=== PATIENT | male | born 1970 | race Caucasian/White ===

== ENCOUNTER 2017-03-11 06:38 | Inpatient (IN) | payer OTHER, MEDICARE ==
[~2017-03-11] VITALS: Ht 170.2 cm; Wt 97.5 kg
[~2017-03-11 06:38] MED LIST: ALPRAZOLAM0.5 M3 PO; AMITRIPTYLINE H25 M2 PO; AMITRIPTYLINE H50 MG PO; ASPIRIN EC81 M1 PO; CITALOPRAM HBR40 MG PO; DIAZEPAM5 M1; DILAUDID 4 MG TA4 MG PO; DILAUDID4 M1 PO; ELAVIL 50 MG PO; EXALGO PO; EXALGO16 MG PO; EXALGO32 MG PO; GABAPENTIN250 MG/5 M PO; HYDROMORPHONE H PO; HYDROMORPHONE HY2 MG PO; HYDROMORPHONE HY4 MG PO; HYDROXYZINE HCL25 MG PO; LYRICA100 M1 PO; ONDANSETRON8 M1 SL; OXYCONTIN40 MG PO; PANTOPRAZOLE SO40 MG PO; PHENERGAN25 MG PR; TAMSULOSIN HYD0.4 MG PO; ZANAFLEX4 MG PO; ZOFRAN 8MG8 MG PO; ZOFRAN ODT4 MG SL; [UNRECOGNIZED DRUG - OTHER] INH
--- NOTE | 2017-03-11 07:31 | ED GI/GU/ABDOMINAL COMPLAINT ---
History of Present Illness General Chief Complaint: Abdominal Pain/Flank Pain Stated Complaint: LEFT KIDNEY PAIN Source: patient, old records Exam Limitations: no limitations Vital Signs & Intake/Output Vital Signs & Intake/Output Vital Signs Date Time Temp Pulse Resp B/P B/P Pulse O2 O2 Flow FiO2 Mean Ox Delivery Rate 03/11 1228 97.3 67 18 132/84 96 Room Air 03/11 1030 98.2 87 18 129/84 95 Room Air 03/11 0708 97.6 116 20 153/116 98 Room Air Allergies Coded Allergies: Iodinated Contrast- Oral and IV Dye (IODINATED CONTRAST MEDIA - IV DYE) (Severe, ANAPHYLAXIS 02/12/16) Iodine and Iodide Containing Produc (Severe, ANAPHYLAXIS 02/12/16) iodine (Severe, ANAPHYLAXIS 02/12/16) morphine (Intermediate, HIVES 02/12/16) Reconcile Medications Amitriptyline HCl 25 MG TABLET 1 TAB PO QPM PAIN (Reported) Amlodipine Besylate 2.5 MG TABLET 1 TAB PO DAILY HEART (Reported) Aspirin (Ecotrin*) 81 MG TABLET.DR 1 TAB PO DAILY AFIB (Reported) Baclofen 20 MG TABLET 1 TAB PO QPM SLEEP (Reported) Citalopram Hydrobromide (Citalopram HBr) 40 MG TABLET 1 TAB PO DAILY MENTAL HEALTH (Reported) Hydromorphone HCl (Exalgo) 8 MG TAB.ER.24H 1 TAB PO BID PAIN (Reported) Pantoprazole Sodium 20 MG TABLET.DR 1 TAB PO BID GI (Reported) Pregabalin (Lyrica) 100 MG CAPSULE 1 CAP PO TID NERVE PAIN (Reported) Triage Note: C/O LEFT SIDED KIDNEY PAIN X 2 WEEKS, 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 REPORTS HE HAS A POWER PORT IN R CHEST AND HAS HAD 56 ADMISSIONS. Triage Nurses Notes Reviewed? yes HPI: Patient presents with pain in his left lower quadrant in the setting of where his left kidney has been transplanted 2. Patient sees pain management. Patient has a care plan which includes IV Dilaudid and IV Zofran and IV fluids. Patient is on 16 mg of Dilaudid throughout the day at home. Patient states that over the past day and a half the pain is been increasing. The pain is 10 out of 10. There are no aggravating or mitigating factors. Positive nausea but no vomiting. The pain is sharp and stabbing in nature. There is no dysuria. No fevers or chills. Past History Travel History Traveled to [place] past 21 day No Medical History Any Pertinent Medical History? see below for history Neurological: NONE EENT: NONE Cardiovascular: AFIB Respiratory: NONE Gastrointestinal: BARROTS ESOPHAGUS Hepatic: NONE Renal: LOIN PAIN HEMATURIA SYNDRome- he presents with letter from his physician stating that he usually requires dilaudid 2mg iv for up to 3 doses. 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 No Review of Systems Review of Systems Constitutional: Reports: no symptoms. EENTM: Reports: no symptoms. Respiratory: Reports: no symptoms. Cardiovascular: Reports: no symptoms. GI: Reports: see HPI, abdominal pain, nausea, vomiting. Genitourinary: Reports: no symptoms. Musculoskeletal: Reports: no symptoms. Skin: Reports: no symptoms. Neurological/Psychological: Reports: no symptoms. Hematologic/Endocrine: Reports: no symptoms. Immunologic/Allergic: Reports: no symptoms. All Other Systems: Reviewed and Negative Physical Exam Physical Exam General Appearance: well developed/nourished, alert, awake, anxious, moderate distress Head: atraumatic, normal appearance Eyes: Bilateral: PERRL, EOMI. Ears, Nose, Throat, Mouth: hearing grossly normal, DRY MUCUS MEMBRANES Neck: normal inspection, supple, full range of motion Respiratory: normal breath sounds, chest non-tender, no respiratory distress, lungs clear Cardiovascular: regular rate/rhythm, normal peripheral pulses Gastrointestinal: normal bowel sounds, soft, no organomegaly, tenderness (LLQ), NO GUARDING OR REBOUND Back: normal inspection, normal range of motion Extremities: normal range of motion Neurologic/Psych: no motor/sensory deficits, awake, alert, oriented x 3, normal mood/affect Skin: intact, normal color, warm/dry Core Measures ACS in differential dx? No Severe Sepsis Present: No Septic Shock Present: No Progress Differential Diagnosis: ACUTE EXACERBATION OF CHRONIC PAIN Plan of Care: Orders Procedure Date/time Status Regular Diet 03/[address] in observation 03/11 1307 Active Patient Data 03/11 1125 Active LACTIC ACID 03/11 0941 Complete URINALYSIS 03/11 06 Complete TROPONIN LEVEL 03/11 06 Complete LIPASE 03/11 06 Complete LACTIC ACID 03/11 06 Complete HEPATIC FUNCTION PANEL 03/11 06 Complete CBC WITHOUT DIFFERENTIAL 03/11 06 Complete BASIC METABOLIC PANEL 03/11 641 Complete AMYLASE 03/11 641 Complete EKG 03/11 06 Active Current Medications Sig/Josselyn Start time Last Medication Dose Stop Time Status Admin Ondansetron HCl 4 MG Q6P PRN 03/11 1315 AC (Zofran) Sodium Chloride 1,000 ML Q20H 03/11 1315 UNVr (Normal Saline 0.9%) Diphenhydramine HCl 25 MG Q6P PRN 03/11 1300 UNVr (Benadryl) Hydromorphone HCl 2 MG Q3P PRN 03/11 1300 AC (Dilaudid) Oxycodone HCl 15 MG Q12 03/11 1300 UNVr (OxyCONTIN) Laboratory Tests 03/11/17 0953: Urine Color YEL, Urine Clarity CLEAR, Urine pH 6.0, Ur Specific [place] 1.025, Urine Protein NEG, Urine Ketones NEG, Urine Nitrite NEG, Urine Bilirubin NEG, Urine Urobilinogen 0.2, Ur Leukocyte Esterase NEG, Ur Microscopic SEDIMENT EXAMINED, Urine RBC 3-5, Ur Epithelial Cells FEW, Urine Bacteria FEW H, Urine Hemoglobin MOD H, Urine Glucose >=1000 H 03/11/17 0904: Lactic Acid 1.6 03/11/17 0713: Anion Gap 15, Estimated GFR > 60, BUN/Creatinine Ratio 21.4, Glucose 256 H, Lactic Acid 3.4 H, Calcium 10.1, Total Bilirubin 0.5, Direct Bilirubin 0.2, AST 51, ALT 187 H, Alkaline Phosphatase 97, Troponin I < 0.01, Total Protein 7.2, Albumin 4.6, Amylase < 30 L, Lipase 70, CBC w Diff NO MAN DIFF REQ, RBC 5.44, MCV 82.2, MCH 26.3 L, RDW 21.1 H, MPV 10.3, Gran % 82.2 H, Lymphocytes % 15.2 L, Monocytes % 1.7, Eosinophils % 0.7, Basophils % 0.2, Absolute Granulocytes 7.4 H, Absolute Lymphocytes 1.4, Absolute Monocytes 0.1 L, Absolute Eosinophils 0.1, Absolute Basophils 0, PUBS MCHC 32.0 L Initial ED EKG: SR WITH LAFB, NO CHANGE FROM PRIOR Prior EKG: unchanged Comments: Patient has a picture of his care plan which is been signed by his physician. The care plan calls for Dilaudid 2 mg IV with IV Zofran and IV fluids. Patient is to receive up to 3 doses and if he is requiring more than he will require admission. Departure Departure Disposition: HOME OR SELF CARE Condition: Stable Clinical Impression Primary Impression: Abdominal pain Qualifiers: Abdominal location: left lower quadrant Qualified Code: R10.32 - Left lower quadrant pain Referrals: JOSE R SOTOMAYOR,CAT العراقي (PCP/Family) Departure Forms: Customer Survey General Discharge Information Observation Note Spoke With: BROOKS FERNANDEZ M.D Physician Advisor Notified: MOOK SOTOMAYOR,IDANIA Capps Place Patient In: Non-ED OBS Care Area Rationale for Observation: My rational for observation is as follows [IV fluids, IV and I am medics, IV pain control].
[2017-03-11 08:02] LABS: ABSOLUTE BASOPHIL COUNT 0 /CUMM (0.0-0.2); ABSOLUTE EOSINOPHIL COUNT 0.1 /CUMM (0.0-0.7); ABSOLUTE GRANULOCYTE CT 7.4 /CUMM (1.4-6.5); ABSOLUTE LYMPH COUNT 1.4 /CUMM (1.2-3.4); ABSOLUTE MONOCYTE COUNT 0.1 /CUMM (0.10-0.60); BASOPHIL % 0.2 % (0.0-2.0); EOSINOPHIL % 0.7 % (0-5); GRANULOCYTE % 82.2 % (42.2-75.2); HEMATOCRIT 44.7 % (42-52); MEAN CORPUSCULAR HGB 26.3 PG (27.0-31.0); MEAN CORPUSCULAR VOLUME 82.2 FL (80.0-94.0); MEAN PLATELET VOLUME 10.3 FL (7.4-10.4); PLATELET COUNT 258 /CUMM (130-400); RBC DISTRIBUTION WIDTH 21.1 % (11.5-14.5); RED BLOOD CELL CT 5.44 /CUMM (4.70-6.10)
--- NOTE | 2017-03-11 08:03 | NUR ---
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 REPORTS HE HAS A POWER PORT IN R CHEST AND HAS HAD 56 ADMISSIONS.
--- NOTE | 2017-03-11 08:04 | NUR ---
PORT ACCESSED WITH 0.75 INCH. PT MEDICATED DOCUMENTED IN EMAR
[2017-03-11] MEDS ORDERED: AMLODIPINE BES2.5 M1 PO (08:08)
[2017-03-11] MEDS ORDERED: BACLOFEN20 M1 PO (08:08)
[2017-03-11] MEDS ORDERED: PANTOPRAZOLE SO20 M1 PO (08:11)
--- NOTE | 2017-03-11 09:02 | NUR ---
PT MEDICATED DOCUMENTED IN EMAR
--- NOTE | 2017-03-11 09:58 | NUR ---
PT REPORTS BOTH DOSES OF DILAUDID BROUGHT PAIN DOWN TO A 5-[address] DESOUZA AWARE.
--- NOTE | 2017-03-11 10:30 | NUR ---
PT RESTING ON STRETCHER, REPORTS PAIN AND NAUSEA RETURNED.
--- NOTE | 2017-03-11 12:47 | NUR ---
HOUSE STAFF AT BEDSIDE FOR EVAL.
--- NOTE | 2017-03-11 13:08 | NUR ---
FOOD TRAY ORDERED FOR PT. PT ASKING FOR MORE PAIN MEDS AND BENADRYL.
--- NOTE | 2017-03-11 13:37 | History & Physical ---
See Addendum KELLIE BAILON MD 03/11/17 1334: General Information and HPI MD Statement: I have seen and personally examined MONA LEPE and documented this H&P. The patient is a 46 year old M who presented with a patient stated chief complaint of [Left Lower abdominal and Groin pain]. 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 Pain is severe, located in his left lower abdomen and radiates to his left groin and left lower back and is not relieved by oral opiate medication. Pain is associated with nausea and vomiting. He denies any fever, hematemesis, shortness of breath, urinary symptoms, or weakness. He is not on any immunosuppresive drugs and does not require dialysis. Patient has had this syndrome for about 4 years and says pain was initially controlled by opiates, however when the opiates failed to control his pain he got an autotransplant of his left kidney in September 2016 to move his kidney to a different location at [facility]. He was weaned off opiates and was pain-free for about 8-9 weeks but pain returned about 2 weeks ago. Pain has been worsening in the past week and not relieved by Dilaudid and his nausea and vomiting not relieved by Zofran or Phenergan. Last night pain became worse and he noticed he had passed a small amount of blood in his urine. He called up both his vacuum pan tender and primary care physician who both coincidentally where on vacation, so he came in to the ED. Patient was seen by pain management clinic and was started on Dilaudid extended- release 8 mg twice a day which controlled his pain at he would get exacerbations now one then with nausea and vomiting and would be given 3 days off intravenous Dilaudid to control his pain. Patient presents a letter with pain regimen noted above from his primary care physician on his phone. He is scheduled for an intrathecal pump placement by his pain management physician at the [facility] [place] on April 01. Allergies/Medications Allergies: Coded Allergies: Iodinated Contrast- Oral and IV Dye (IODINATED CONTRAST MEDIA - IV DYE) (Severe, ANAPHYLAXIS 02/12/16) Iodine and Iodide Containing Produc (Severe, ANAPHYLAXIS 02/12/16) iodine (Severe, ANAPHYLAXIS 02/12/16) morphine (Intermediate, HIVES 02/12/16) Compliance With Home Meds: GOOD Observation Initial Note - I have personally examined MONA LEPE on 03/11/17 at 1334. The disposition of MONA LEPE is uncertain at this time and before a determination can be made, he requires a period of observation for the following reasons short term need for IV pain medication management, IVF and nausea mgt. Past History Travel History Traveled to [place] past 21 day No Medical History Neurological: NONE EENT: NONE Cardiovascular: AFIB Respiratory: NONE Gastrointestinal: BARROTS ESOPHAGUS Hepatic: NONE Renal: LOIN PAIN HEMATURIA SYNDRome- he presents with letter from his physician stating that he usually requires dilaudid 2mg iv for up to 3 doses. 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 GF Services at Home: None Primary Language: Faroese ETOH Use: denies use Illicit Drug Use: denies illicit drug use Living Will? no Power of Adobe Maker/HCP? yes Name of POA/HCP: Anika Knight(girl friend) Functional Ability ADLs Independent: dressing, eating, toileting, bathing. Ambulation: independent IADLs Independent: shopping, housework, finances, food prep, telephone, transportation , medication admin. Review of Systems Review of Systems Constitutional: Reports: no symptoms. Denies: see HPI. Exam & Diagnostic Data Last 24 Hrs of Vital Signs/I&O Vital Signs Date Time Temp Pulse Resp B/P B/P Pulse O2 O2 Flow FiO2 Mean Ox Delivery Rate 03/11 1438 98.0 68 18 126/78 97 Room Air 03/11 1228 97.3 67 18 132/84 96 Room Air 03/11 1030 98.2 87 18 129/84 95 Room Air 03/11 0708 97.6 116 20 153/116 98 Room Air Intake & Output 03/11 1600 03/11 0800 03/11 0000 Intake Total 1000 Output Total Balance 1000 Intake, IV 1000 Patient 215 lb 215 lb Weight Weight Reported by Patient Measurement Method Physical Exam General Appearance Alert, Oriented X3, Cooperative, No Acute Distress HEENT PERRLA, EOMI, Mucous Membr. moist/pink Cardiovascular Regular Rate, Normal S1, Normal S2 Lungs Clear to Auscultation, Normal Air Movement Abdomen Normal Bowel Sounds, Soft, tenderness in the left lower abd and groin, oblique scar present Extremities No Edema, Normal Pulses Last 24 Hrs of Labs/Michael: Laboratory Tests 03/11/17 0953: Urine Color YEL, Urine Clarity CLEAR, Urine pH 6.0, Ur Specific [place] 1.025, Urine Protein NEG, Urine Ketones NEG, Urine Nitrite NEG, Urine Bilirubin NEG, Urine Urobilinogen 0.2, Ur Leukocyte Esterase NEG, Ur Microscopic SEDIMENT EXAMINED, Urine RBC 3-5, Ur Epithelial Cells FEW, Urine Bacteria FEW H, Urine Hemoglobin MOD H, Urine Glucose >=1000 H 03/11/17 0904: Lactic Acid 1.6 03/11/17 0713: Anion Gap 15, Estimated GFR > 60, BUN/Creatinine Ratio 21.4, Glucose 256 H, Hemoglobin A1c Pending, Lactic Acid 3.4 H, Calcium 10.1, Total Bilirubin 0.5, Direct Bilirubin 0.2, AST 51, ALT 187 H, Alkaline Phosphatase 97, Troponin I < 0.01, Total Protein 7.2, Albumin 4.6, Amylase < 30 L, Lipase 70, CBC w Diff NO MAN DIFF REQ, RBC 5.44, MCV 82.2, MCH 26.3 L, RDW 21.1 H, MPV 10.3, Gran % 82.2 H, Lymphocytes % 15.2 L, Monocytes % 1.7, Eosinophils % 0.7, Basophils % 0.2, Absolute Granulocytes 7.4 H, Absolute Lymphocytes 1.4, Absolute Monocytes 0.1 L, Absolute Eosinophils 0.1, Absolute Basophils 0, PUBS MCHC 32.0 L Assessment/Plan Assessment: 46-year-old male with significant past medical history for the 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 Problem List Pain exacerbation from left sided loin Pain hematuria syndrome Plan Pt will be placed on observation for pain mgt Start IV dilaudid 2mg Q3PRN for breakthrough pain Start PO oxycontin 15mg BID for basal pain control IV Zofran PRN Add IV benadryl for itching IVF hydration Check HbA1c for elevated sugars Resume his impt home medications Avoid morphine as pt is allergic Monitor vital signs Regular diet SC lovenox for DVT ppx FC Pain mgt pathway As Ranked By This Provider Problem List: 1. Loin pain-hematuria syndrome Core Measures/Miscellaneous Acute Coronary Syndrome ACS Diagnosis: No Cerebrovascular Accident CVA/TIA Diagnosis: No Congestive Heart Failure CHF Diagnosis: No VTE (View Protocol) VTE Risk Factors: Acute medical illness, Age > 40 No Mech VTE prophylaxis d/t: No contraindications No VTE Pharm Prophylaxis d/t: No contraindications VTE Diagnosis: No VTE Type: NONE VTE Confirmed by (Test): NONE Sepsis (View Protocol) Severe Sepsis Present: No Septic Shock Septic Shock Present: No Miscellaneous Documentation Attending Case Discussed With: Dr. Downey Primary Care Physician: JOSE R SOTOMAYOR,CAT العراقي Patient sees these Specialists Hand Drawer In Level of Patient Care: General Medicine Resident Review Statement Resident Statement: examined this patient Other Findings: See HPI HALEY CARVER 03/11/17 1347: General Information and HPI Allergies/Medications Home Med list Amlodipine Besylate 2.5 MG TABLET 1 TAB PO DAILY HEART (Reported) Aspirin (Ecotrin*) 81 MG TABLET.DR 1 TAB PO DAILY AFIB (Reported) Baclofen 20 MG TABLET 1 TAB PO QPM SLEEP (Reported) Citalopram Hydrobromide (Citalopram HBr) 40 MG TABLET 1 TAB PO DAILY MENTAL HEALTH (Reported) Hydromorphone HCl (Exalgo) 8 MG TAB.ER.24H 1 TAB PO BID PAIN (Reported) Pantoprazole Sodium 20 MG TABLET.DR 1 TAB PO BID GI (Reported) Pregabalin (Lyrica) 100 MG CAPSULE 1 CAP PO TID NERVE PAIN (Reported) Observation Initial Note - I have personally examined MONA LEPE on 03/11/17 at 1840. The disposition of MONA LEPE is uncertain at this time and before a determination can be made, he requires a period of observation for the following reasons [] Exam & Diagnostic Data Last 24 Hrs of Vital Signs/I&O Vital Signs Date Time Temp Pulse Resp B/P B/P Pulse O2 O2 Flow FiO2 Mean Ox Delivery Rate 03/11 1228 97.3 67 18 132/84 96 Room Air 03/11 1030 98.2 87 18 129/84 95 Room Air 03/11 0708 97.6 116 20 153/116 98 Room Air Intake & Output 03/11 1600 03/11 0800 03/11 0000 Intake Total 1000 Output Total Balance 1000 Intake, IV 1000 Patient 97.522 kg Weight Weight Reported by Patient Measurement Method REJI DOWNEY MD 03/11/17 2220: Attending MD Review Statement Attending Statement Attending MD Statement: examined this patient, discuss w/resident/PA/CITY PLANNING AIDE, agreed w/resident/PA/CITY PLANNING AIDE, reviewed EMR data (avail), reviewed images, amended to note Attending Assessment/Plan: The patient is a 46 yo male with h/o afib (cardioverted), Vann's Esophagus, and chronic LLQ abd/flank pain (at surgical site) and hematuria s/ prior autograft of his left kidney. He has had multiple prior admissions for similar pain (even prior to autograft). He is followed by a PCP in [place] (Dr. Lea) who previously was prescribing his chronic narcotics. Recently has been followed by a Pain Center in [facility] and they have assumed prescriptions of narcotics ([place] checked). They are contemplating pain pump. His surgery was performed in [facility] at [facility] ([facility] Drawer In ). He denies any fever, chills, however has had some nausea and vomiting. Prior CT studies have never showed any obstruction (last CT here showed non- obstructing stones). His PCP has given him a set of instructions for treatment of "flares" of his chronic pain sydrome that includes IV Dilaudid. He presents with what he consideres a typical flare. Pain has been intractable and not responding to po meds. He also takes Lyrica tid and thinks this may be helping slightly. Physical Exam: VS: T 98., P 68, R 18, BP 126/78, PO 97% HEENT: ismael- dry mucosa Neck: no adenopathy, bruits Chest: clear Cor: RRR, nl S1, S2 w/o murm Abd: BS+, soft, + moderate tenderness LLQ in region of prior surgery, no masses palpable, minimal guarding, no rebound tenderness Ext: no edema, pulses 2+ Neuro: alert & oriented x 3, non-focal exam Labs/Tests- as above Impression/Plan: #Acute on Chronic LLQ Abdominal Pain- at site of renal autograft. Patient with h /o chronic pain sydrome and is on chronic narcotics followed by Pain Management in [facility]. He presents with what he feels is typical of prior "Flares' of his pain syndrome and is not responding to usual po meds/narcotics. His PCP sends a note with instruction regarding IV therapy. Plan: Will bring in under observation and treat with IV Dilaudid and hydration. Follow pain and transistion back to po when able. Will need to call his chronic pain specialist to discuss tomorrow. Will continue his Lyrica, Baclofen, and other po meds. #HTN- BP good at present. Plan: Continue Amlodipine. #H/O Vann's Esophagus- on PPI. Plan: Continue PPI (substitute Omeprazole for Pantoprazole in hospital). #Hyperglycemia- noted glucosuria and glu 256 noted today. No h/o DM? Plan: Will follow sugars and check Hgb A1C in morning.
--- NOTE | 2017-03-11 14:37 | NUR ---
PT MEDICATED WITH DILAUDID 2MG PER EMAR. PT PROVIDED WITH FOOD TRAY OFFER NO COMPLAINTS AT THIS TIME.
--- NOTE | 2017-03-11 15:28 | NUR ---
PT REFUSED LOVENOX, HOUSE STAFF PAGED AT 018 TO INFORM. AWAITING CALL BACK.
--- NOTE | 2017-03-11 15:57 | NUR ---
FOOD TRAY PROVIDED TO PT.
--- NOTE | 2017-03-11 16:17 | NUR ---
PT HAS A BED 230-1
--- NOTE | 2017-03-11 16:30 | NUR ---
REPORT CALLED TO GINNY WREN. DISTRIBUTION BOOKED.
--- NOTE | 2017-03-11 16:35 | NUR ---
PT WEARING HOSPITAL GOWN, BUT REFUSING TO TAKE PANTS OFF. WILL CHANGE IN 2NA.
[2017-03-11 17:08] VITALS: BP 132/82
--- NOTE | 2017-03-11 17:30 | NUR ---
PT UP TO FLOOR AT 1700. PT A/O X3, PAIN SEVERE SEE EMAR. IVF INFUSING PER EMAR VIA RCW PAC ACCESSED TODAY IN ER. SITE C/D/I. + BLOOD RTURN TO PAC. PT OOB W STEADY GAIT. CALL SINGH USE INSTRUCTED. WILL MONITOR
[2017-03-11 22:17] VITALS: BP 112/76
--- NOTE | 2017-03-11 22:49 | PN-Observation ---
Observation Note Observation Note _ I have personally examined MONA LEPE. him disposition is uncertain at this time. Before a determination can be made, he requires continued observation for the following reasons: He has intractable LLQ abdominal pain and is requiring IV Narcotics at present to control pain which appears to be a flare of his chronic pain syndrome. Assessment/Plan Problem List: 1. Chronic groin pain 2. Intractable pain 3. Paroxysmal a-fib 4. GERD (gastroesophageal reflux disease) 5. Loin pain-hematuria syndrome 6. Hematuria 7. Loin pain hematuria syndrome Subjective Complaints: pain scale (0-10) (SEE PRIOR NOTES) Objective Last 24 Hrs of Vital Signs/I&O SEE PRIOR NOTE
[2017-03-12 06:29] VITALS: BP 110/68
--- NOTE | 2017-03-12 07:53 | PN-Observation ---
ADAMARIS SOTOMAYOR,[place] 03/12/17 0752: Observation Note Observation Note _ I have personally examined MONA LEPE. him disposition is uncertain at this time. Before a determination can be made, he requires continued observation for the following reasons [IV pain medication management, IVF and nausea mgt]. 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 Problem List: 1. Loin pain-hematuria syndrome 2. Left flank pain, chronic Plan: Plan Continue observation for pain mgt-pt may need to be admitted due to still requiring IV pain and nausea meds Continue IV dilaudid 2mg Q3PRN for breakthrough pain Continue PO oxycontin 15mg BID for basal pain control Continue Zofran PRN Continue IV benadryl for itching Can D/C fluids once pt is able to tolerate orally HbA1c 5.3 Continue his impt home medications Avoid morphine as pt is allergic Continue to monitor vital signs Regular diet SC lovenox for DVT ppx FC DVT/Prophylaxis: mechanical, pharmacological Discharge Plan Discharge Disposition: home Stable for Discharge? No Subjective Follow-up For: Pain exacerbation from Loin pain hematuria syndrome Complaints: pain scale (0-10) (7) Subjective: Laying calmly in bed, says he is still in pain but thinks he is rounding the corner and will probably require 1-2 more days of IV pain meds to get back to his baseline. Nausea is still present as well but slowly improving. Review of Systems Constitutional: Reports: no symptoms. Objective Last 24 Hrs of Vital Signs/I&O Vital Signs Date Time Temp Pulse Resp B/P B/P Pulse O2 O2 Flow FiO2 Mean Ox Delivery Rate 03/12 0629 97.5 62 20 110/68 98 Room Air 03/11 2217 97.6 64 20 112/76 96 Room Air 03/11 2148 71 132/70 03/11 1708 98.1 60 20 132/82 96 Room Air 03/11 1634 96.9 62 18 138/79 98 Room Air 03/11 1438 98.0 68 18 126/78 97 Room Air 03/11 1228 97.3 67 18 132/84 96 Room Air 03/11 1030 98.2 87 18 129/84 95 Room Air Intake & Output 03/12 1600 03/12 0800 03/12 0000 Intake Total 400 750 Output Total Balance 400 750 Intake, IV 400 250 Intake, Oral 500 Physical Exam General Appearance: Alert, Oriented X3, Cooperative, No Acute Distress Skin: No Significant Lesion, port on hi Rt upper chest wall HEENT: PERRLA, EOMI, Mucous Membr. moist/pink Neck: Supple Cardiovascular: Regular Rate, Normal S1, Normal S2, No Murmurs Lungs: Clear to Auscultation, Normal Air Movement Abdomen: Normal Bowel Sounds, Soft, Mild left quadrant tenderness Extremities: No Edema, Normal Pulses Current Medications: Current Medications Sig/Josselyn Start time Last Medication Dose Route Stop Time Status Admin Acetaminophen 650 MG Q6P PRN 03/11 1345 AC PO Amlodipine Besylate 2.5 MG DAILY 03/11 1739 AC 03/12 PO 1027 Aspirin Buffered 81 MG DAILY 03/11 1740 AC 03/12 PO 1027 Baclofen 20 MG AT BEDTIME 03/11 2200 AC 03/11 PO 2149 Citalopram 40 MG DAILY 03/11 1740 AC 03/12 Hydrobromide PO 1027 Diphenhydramine HCl 0 .STK-MED ONE 03/11 1319 DC .ROUTE Diphenhydramine HCl 25 MG Q6P PRN 03/11 1300 AC 03/12 IV 0842 Enoxaparin Sodium 0 .STK-MED ONE 03/11 1521 DC SC Enoxaparin Sodium 40 MG DAILY 03/11 1342 AC SC Hydromorphone HCl 0 .STK-MED ONE 03/11 1436 DC .ROUTE Hydromorphone HCl 2 MG Q3P PRN 03/11 1300 AC 03/12 IV 0842 Hydromorphone HCl 2 MG ONCE ONE 03/11 1045 DC 03/11 IV 03/11 1046 1047 Hydromorphone HCl 0 .STK-MED ONE 03/11 1042 DC .ROUTE Omeprazole 20 MG DAILY AC 03/11 1741 DC 03/12 PO 0546 Ondansetron HCl 4 MG Q6P PRN 03/11 1315 AC IV Ondansetron HCl 4 MG ONCE ONE 03/11 1045 DC 03/11 IV 03/11 1046 1047 Ondansetron HCl 0 .STK-MED ONE 03/11 1042 DC .ROUTE Oxycodone HCl 0 .STK-MED ONE 03/11 1317 DC PO Oxycodone HCl 15 MG Q12 03/11 1300 AC 03/12 PO 1027 Pantoprazole Sodium 40 MG DAILY 03/12 1000 AC IV Pregabalin 100 MG TID 03/11 1741 AC 03/12 PO 1027 Sodium Chloride 1,000 ML Q20H 03/11 1545 AC IV 03/12 1144 Sodium Chloride 1,000 ML Q20H 03/11 1315 AC 03/12 IV 1024 Sodium Chloride 1,000 ML BOLUS ONE 03/11 1045 DC 03/11 IV 03/11 1144 1047 Tramadol HCl 50 MG Q6P PRN 03/11 1345 AC PO Last 24 Hrs of Labs/Mics: Laboratory Tests 03/12 615 Chemistry Sodium (137 - 145 mmol/L) 140 Potassium (3.5 - 5.1 mmol/L) 4.1 Chloride (98 - 107 mmol/L) 106 Carbon Dioxide (22 - 30 mmol/L) 25 Anion Gap (5 - 16) 9 BUN (9 - 20 mg/dL) 11 Creatinine (0.7 - 1.2 mg/dL) 0.8 Estimated GFR (>60 ml/min) > 60 BUN/Creatinine Ratio (7 - 25 %) 13.8 REJI HARRIS MD 03/13/17 0019: Attending MD Review Statement Attending Statement Attending MD Statement: examined this patient, discuss w/resident/PA/DERMATOLOGY TEACHER, agreed w/resident/PA/DERMATOLOGY TEACHER, reviewed EMR data (avail), discussed w/nursing, discussed w/ case mgmt, amended to note Attending Assessment/Plan: The patient was seen and discussed with house staff. Still with significant pain requiring IV narcotics for relief. Will convert to full admission and continue IV narcotics.
[2017-03-12 14:42] VITALS: BP 128/84
--- NOTE | 2017-03-12 17:08 | Discharge Summary ---
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 He has chronic opiate dependence and takes both long and short acting dilaudid at home. He was unable to see his PCP or Cashier Host/Hostess because they were both on vacation and his appointment with his pain mgt doctor isn't for a few weeks so he presented to the ER for pain mgt. Problem List 1. Pain exacerbation from left sided loin Pain hematuria syndrome 2. Hx of atrial fibrillation s/p cardoiversion 3. Abhilash's esophagus Plan Patient was admitted to the medical floor for intravenous pain and nausea medications. Based on a written note from his PCP on the best regimen to treat his exacerbation, he was started on IV dilaudid 2mg Q3PRN for breakthrough pain and oral long acting oxycontin 15mg BID for basal pain control. IV Zofran was given for nausea and IV benadryl for itching due to the opiates. He was given intarvenous hydration with normal saline. His other important home medications were continued. He was also educated on the dangers of ongoing opiate use. He will be discharged to follow-up with his outpatient pain management doctor, polygraph operator and PCP. Complications: none Allergies: Coded Allergies: Iodinated Contrast- Oral and IV Dye (IODINATED CONTRAST MEDIA - IV DYE) (Severe, ANAPHYLAXIS 02/12/16) shellfish derived (Severe, LOBSTER - ANAPHYLAXIS 03/12/17) morphine (Intermediate, HIVES 02/12/16) Significant Procedures: none Disposition Summary Disposition Principal Diagnosis: Acute Exacerbation of loin pain hematuria syndrome Additional Diagnosis: Hx of cardioverted Afib, Abhilash's esophagus Discharge Disposition: home or self care Discharge Instructions General Discharge Information Code Status: Full Code Patient's Diet: Regular Patient's Activity: As tolerated Follow-Up Instructions/Appts: Please follow-up with your PCP after discharge Follow-up with your painter interior finish Medications at Discharge Discharge Medications: Continue taking these medications: Aspirin (Ecotrin*) 81 MG TABLET.DR 1 Tablet ORAL DAILY Comments: Last Taken: 03/15/17 Time: 10AM Pregabalin (Lyrica) 100 MG CAPSULE 1 Capsule ORAL THREE TIMES DAILY Qty = 90 Comments: Last Taken: 03/15/17 Time: 4 PM Citalopram Hydrobromide (Citalopram HBr) 40 MG TABLET 1 Tablet ORAL DAILY Comments: Last Taken: 03/15/17 Time: 10 AM Hydromorphone HCl (Exalgo) 8 MG TAB.ER.24H 1 Tablet ORAL TWICE DAILY Comments: TAKING IV DILAUDID IN HOSPITAL Baclofen (Baclofen) 20 MG TABLET 1 Tablet ORAL Every night Qty = 30 Comments: Last Taken: 03/14/17 Time: 9PM Amlodipine Besylate (Amlodipine Besylate) 2.5 MG TABLET 1 Tablet ORAL DAILY Qty = 30 Comments: Last Taken: 03/15/17 Time: 10 AM Pantoprazole Sodium (Pantoprazole Sodium) 20 MG TABLET.DR 1 Tablet ORAL TWICE DAILY Comments: Last Taken: 03/15/17 Time: 6 AM Copies To: JOSE R SOTOMAYOR,CAT العراقي
[2017-03-12 22:48] VITALS: BP 124/80
[2017-03-13 07:16] VITALS: BP 134/88; BP 136/80
--- NOTE | 2017-03-13 09:03 | Admission Certification ---
Admission Certification Certification Statement - As attending physician, I certify that at the time of - admission, based on clinical presentation, severity of - symptoms, need for further diagnostic testing and - therapeutic interventions, and risk of adverse outcomes - without in-hospital treatment, in my clinical assessment, - this patient requires an acute hospital stay for a minimum - of two nights or longer. I have also considered psychsocial - factors such as support system, advanced age, financial - issues, cognitive issues, and failed out-patient treatments, - past re-admission history, safety of patient, and lack of - compliance as applicable. Specific rationale supporting this admission is: Ongoing need for IV narcotics in a patient with loin pain hematuria syndrome.
--- NOTE | 2017-03-13 09:03 | PN- Att Addend ---
Attending Addendum Attending Brief Note Patient seen and examined. He says that he feels miserable and he feels like someone is rubbing his kidney with sandpaper. Visibly he doesn't appear to be in pain. On exam he is afebrile, blood pressures 134/80, pulse rate is 76 and breathing at 16-18 Awake alert oriented, lungs are clear to auscultation, heart is S1-S2 regular, he has this left lower quadrant and left-sided tenderness on deep palpation. I' m not convinced that this is CVA tenderness.. He is a 46-year-old with chronic opiate dependence with loin pain hematuria syndrome status post autograft of the kidney, A. fib status post cardioversion on aspirin and a Vann's esophagus with GERD on a PPI. He was brought in as observation and treated with IV narcotics for what is considered to be an exacerbation of his loin pain hematuria syndrome. Despite extended observation he continued to require IV narcotics and is now a full admission. He says this is the usual pattern of his exacerbation and he says it usually takes him at least 72 hours to get better. He gets all his medical care from [facility] but says that all of his doctors were on vacation and his girlfriend lives here hence he came here. I explained at length that we have no objective indicators of hematuria. He says he is having hematuria and I requested a UA, urine culture and urine toxicology. Given his complaints of ongoing hematuria , I also requested labs with the morning including CBC. For now will continue his IV fluids and his Dilaudid 2 mg IV every 3. He is not willing to wean it off at this point. I explained clearly that if the objective indicators remain negative then by tomorrow we have to start weaning off the IV Dilaudid.
[2017-03-13 14:15] VITALS: BP 120/80
[2017-03-13 22:39] VITALS: BP 118/80
[2017-03-14 06:24] VITALS: BP 112/68
[2017-03-14 08:22] LABS: ABSOLUTE BASOPHIL COUNT 0 /CUMM (0.0-0.2); ABSOLUTE EOSINOPHIL COUNT 0.7 /CUMM (0.0-0.7); ABSOLUTE GRANULOCYTE CT 3.8 /CUMM (1.4-6.5); ABSOLUTE LYMPH COUNT 1.9 /CUMM (1.2-3.4); ABSOLUTE MONOCYTE COUNT 0.4 /CUMM (0.10-0.60); BASOPHIL % 0.6 % (0.0-2.0); EOSINOPHIL % 10.1 % (0-5); GRANULOCYTE % 55.2 % (42.2-75.2); MEAN CORPUSCULAR HGB 26.5 PG (27.0-31.0); MEAN CORPUSCULAR HGB CONC 32.1 G/DL (33.0-37.0); MEAN CORPUSCULAR VOLUME 82.4 FL (80.0-94.0); PLATELET COUNT 232 /CUMM (130-400); RBC DISTRIBUTION WIDTH 21.4 % (11.5-14.5); RED BLOOD CELL CT 5.33 /CUMM (4.70-6.10); WHITE BLOOD CELL COUNT 6.9 /CUMM (4.8-10.8)
--- NOTE | 2017-03-14 08:28 | PN- Att Addend ---
Attending Addendum Attending Brief Note Patient is sitting up in his chair. He tells me that he still in a lot of pain and is not willing to go back on his Dilaudid. He says he has an appointment with his pain management doctor at 3 PM tomorrow and he would like to leave here by noon tomorrow. On exam he is afebrile, blood pressure is 130/70, pulse is 78 and he is breathing at 16-18 He is awake alert oriented, no jaundice, lungs are clear to auscultation, heart is S1-S2 regular, abdomen is soft. He has some left lower quadrant tenderness on deep palpation but no CVA tenderness but his abdominal exam is hard to interpret as he won't allow you to press too much. There is no edema He is a 46-year-old male with chronic opiate dependence on high-dose long-acting Dilaudid at home for loin pain hematuria syndrome. He is here with an exacerbation of this syndrome and has been getting IV Dilaudid every 3 hours. His UA shows hematuria and I spoke to him about imaging. He says he's had multiple CT abdomens and has had a lot of radiation exposure and his deck mechanic has told him to refuse further imaging as it doesn't sales and service change leader. He says this is generally how his exacerbations occur and they take 48-72 hours to resolve. He wants to be treated with IV Dilaudid up until 12 noon tomorrow at which point he'll be discharged to follow-up with his outpatient pain management doctor. He does not want to be given any scripts on discharge is then that would cause him to violate the agreement with the outpatient pain management doctor. I explained to him at length the dangers of ongoing opiate use
--- NOTE | 2017-03-14 08:33 | PN-Observation ---
Observation Note Observation Note _ I have personally examined MONA LEPE. him disposition is uncertain at this time. Before a determination can be made, he requires continued observation for the following reasons [IV pain medication management for sewvere abdominal pain, IVF]. 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 Problem List: 1. Loin pain-hematuria syndrome 2. Hematuria Plan: Plan Continue observation for pain medication associated with nausea and hematuria Continue IV dilaudid 2mg Q3PRN for breakthrough pain Continue PO oxycontin 15mg BID for basal pain control Continue Zofran PRN Continue IV benadryl for itching Can D/C fluids once pt is able to tolerate orally HbA1c 5.3 Continue his impt home medications Avoid morphine as pt is allergic Continue to monitor vital signs Regular diet SC lovenox for DVT ppx FC Subjective Follow-up For: Loin pain hematuria syndrome exacerbation Subjective: Patient was seen and examined this morning, continues to have severe abdominal pain that requires diluted 2 mg every 3 hours, associated with nausea, hematuria. Review of Systems Constitutional: Reports: see HPI. Objective Last 24 Hrs of Vital Signs/I&O Vital Signs Date Time Temp Pulse Resp B/P B/P Pulse O2 O2 Flow FiO2 Mean Ox Delivery Rate 03/14 0943 75 112/68 03/14 0624 98.2 75 18 112/68 97 Room Air 03/13 2239 97.8 70 19 118/80 95 Nasal Cannula 03/13 1415 97.1 72 18 120/80 97 Intake & Output 03/14 1600 03/14 0800 03/14 0000 Intake Total 640 750 Output Total Balance 640 750 Intake, IV 400 150 Intake, Oral 240 600 Physical Exam General Appearance: Alert, Oriented X3, Cooperative, No Acute Distress Skin: No Rashes, No Breakdown, No Significant Lesion Skin Temp/Moisture Exam: Warm/Dry HEENT: Atraumatic, PERRLA, EOMI, Mucous Membr. moist/pink Neck: Supple, No JVD Cardiovascular: Regular Rate, Normal S1, Normal S2, No Murmurs Lungs: Clear to Auscultation, Normal Air Movement Abdomen: Normal Bowel Sounds, Soft, LUQ tenderness Neurological: Normal Gait, Normal Speech, Strength at 5/5 X4 Ext, Normal Tone, Sensation Intact, Cranial Nerves 3-12 NL, Reflexes 2+ Extremities: No Clubbing, No Cyanosis, No Edema, Normal Pulses, No Tenderness/ Swelling
[2017-03-14 14:57] VITALS: BP 110/80
--- NOTE | 2017-03-14 21:11 | Patient Discharge Instructions ---
Discharge Instructions General Discharge Information You were seen/treated for: Acute exacerbation of loin pain hematuria syndrome Special Instructions: Please follow up with your PCP in 1 week Please follow up with yournephrologist in 1 week Please follow up with your pain mgt physician in 1 week Diet Recommended Diet: Regular Activity Activity Self Limited: Yes Acute Coronary Syndrome Inclusion Criteria At DC or during hospital stay patient has or had the following: ACS DIAGNOSIS No Discharge Core Measures Meds if any: Prescribed or Continued at Discharge Meds if any: NOT Prescribed or Continued at Discharge Congestive Heart Failure Inclusion Criteria At DC or during hospital stay patient has or had the following: CHF DIAGNOSIS No Discharge Core Measures Meds if any: Prescribed or Continued at Discharge Meds if any: NOT Prescribed or Continued at Discharge Cerebrovascular accident Inclusion Criteria At DC or during hospital stay patient has or had the following: CVA/TIA Diagnosis No Discharge Core Measures Meds if any: Prescribed or Continued at Discharge Meds if any: NOT Prescribed or Continued at Discharge Venous thromboembolism Inclusion Criteria VTE Diagnosis No VTE Type NONE VTE Confirmed by (Test) NONE Discharge Core Measures - Per Current guidelines, there needs to be overlap - treatment for the first 5 days of Warfarin therapy. - If discharged on Warfarin prior to 5 days of - overlap therapy, the patient will need to be - assessed for post discharge needs including - *Post discharge parental anticoagulation - *Warfarin and/or parental anticoagulation education - *Follow up date to check INR post discharge At least 5 days overlap therapy as Inpatient No Meds if any: Prescribed or Continued at Discharge Note: Overlap Therapy is Warfarin and Anticoagulant Meds if any: NOT Prescribed or Continued at Discharge
[2017-03-14 22:22] VITALS: BP 114/60
[2017-03-15 06:30] VITALS: BP 132/78
--- NOTE | 2017-03-15 10:19 | PN- Housestaff ---
ARACELI PACE 03/15/17 1019: Subjective Follow-up For: Left flank pain Subjective: This morning patient is complaining of 8/10 pain in his left flank area. He is alert, awake and oriented. Vitals are stable. Denies any urinary symptoms. Review of Systems Constitutional: Reports: see HPI. Objective Last 24 Hrs of Vital Signs/I&O Vital Signs Date Time Temp Pulse Resp B/P B/P Pulse O2 O2 Flow FiO2 Mean Ox Delivery Rate 03/15 1351 97.8 78 20 116/80 97 Room Air 03/15 0956 98.6 81 18 132/78 03/15 0630 98.6 81 18 132/78 96 Room Air 03/14 2222 97.7 79 18 114/60 96 Room Air Intake & Output 03/15 1600 03/15 0800 03/15 0000 Intake Total 730 500 300 Output Total Balance 730 500 300 Intake, IV 250 400 200 Intake, Oral 480 100 100 Physical Exam General Appearance: Alert, Oriented X3, Cooperative, No Acute Distress Cardiovascular: Regular Rate, No Murmurs Lungs: Clear to Auscultation Abdomen: Normal Bowel Sounds, Soft, No Tenderness Neurological: Normal Speech, Strength at 5/5 X4 Ext, Sensation Intact, Cranial Nerves 3-12 NL Extremities: No Edema Current Medications: Current Medications Sig/Josselyn Start time Last Medication Dose Route Stop Time Status Admin Acetaminophen 650 MG Q6P PRN 03/11 1345 AC PO Amlodipine Besylate 2.5 MG DAILY 03/11 1739 AC 03/15 PO 0956 Aspirin Buffered 81 MG DAILY 03/11 1740 AC 03/15 PO 0956 Baclofen 20 MG AT BEDTIME 03/11 2200 AC 03/14 PO 2118 Citalopram 40 MG DAILY 03/11 1740 AC 03/15 Hydrobromide PO 0955 Diphenhydramine HCl 50 MG .STK-MED ONE 03/15 0404 DC IM 03/15 0405 Diphenhydramine HCl 50 MG .STK-MED ONE 03/14 2126 DC IM 03/14 2127 Diphenhydramine HCl 50 MG .STK-MED ONE 03/14 1553 DC IM 03/14 1554 Diphenhydramine HCl 25 MG Q6P PRN 03/11 1300 AC 03/15 IV 1001 Enoxaparin Sodium 40 MG DAILY 03/11 1342 AC SC Hydromorphone HCl 8 MG BID 03/15 2200 AC PO Hydromorphone HCl 2 MG Q6P PRN 03/15 1445 DC IV Hydromorphone HCl 2 MG Q3P PRN 03/11 1300 DC 03/15 IV 1411 Omeprazole 20 MG DAILY AC 03/14 0822 AC 03/15 PO 0608 Ondansetron HCl 4 MG Q6P PRN 03/11 1315 AC IV Oxycodone HCl 15 MG Q12 03/11 1300 AC 03/15 PO 0955 Pregabalin 100 MG TID 03/11 1741 AC 03/15 PO 0955 Sodium Chloride 1,000 ML Q20H 03/11 1315 DC 03/14 IV 2118 Tramadol HCl 50 MG Q6P PRN 03/11 1345 AC PO Assessment/Plan Assessment: 46-year-old man with significant past medical history for the 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 PLAN * Monitor vitals every shift * DC IV Dilaudid today and switch to by mouth Dilaudid, same dose that he was getting at home * Patient is medically stable to be discharged today but he is refusing and complaining that his pain is not well controlled. Apparently patient doesn't look like in pain but he is getting all his scheduled doses of IV Dilaudid. Vitals are stable. * Anticipated discharge for tomorrow * Patient has an appointment with pain management (TOMMY edwards at [place] at 4pm tomorrow) * CTPMP was checked and patient was recently refilled with hydromorphone 90 day supply on March 04. Problem List: 1. Flank pain Pain Ratin Pain Location: Left flank Pain Goal: Pain 4 or less Pain Plan: Po Dilaudid Tomorrow's Labs & Rationales: none DVT/Prophylaxis: pharmacological DAHIANA WELLER 03/15/17 1020: Attending MD Review Statement Attending Statement Attending MD Statement: examined this patient, discuss w/resident/PA/SPANISH LANGUAGE LECTURER, agreed w/resident/PA/SPANISH LANGUAGE LECTURER, discussed with family, reviewed EMR data (avail), discussed with nursing, discussed with case mgmt, reviewed images, amended to note Attending Assessment/Plan: He is a 46-year-old male with chronic opiate dependence on high-dose long-acting Dilaudid at home for loin pain hematuria syndrome. He is here with an exacerbation of this syndrome and has been getting IV Dilaudid every 3 hours. He says this is generally how his exacerbations occur and they take 48-72 hours to resolve. He'll be discharged to follow-up with his outpatient pain management doctor. He does not want to be given any scripts on discharge is then that would cause him to violate the agreement with the outpatient pain management doctor. I explained to him at length the dangers of ongoing opiate use, anticipate d/c soon
[2017-03-15 13:51] VITALS: BP 116/80
[2017-03-15 22:16] VITALS: BP 114/70
[2017-03-16 06:39] VITALS: BP 120/82
--- NOTE | 2017-03-16 08:46 | PN- Housestaff ---
ARACELI PACE 03/16/17 0842: Subjective Follow-up For: Left flank pain Subjective: This morning patient is feeling little better. He has an appointment with his pain management doctor at 4 PM today. Review of Systems Constitutional: Reports: see HPI. Objective Last 24 Hrs of Vital Signs/I&O Vital Signs Date Time Temp Pulse Resp B/P B/P Pulse O2 O2 Flow FiO2 Mean Ox Delivery Rate 03/16 0639 97.5 70 16 120/82 96 Room Air 03/15 2216 98.8 77 20 114/70 96 Room Air 03/15 1351 97.8 78 20 116/80 97 Room Air 03/15 0956 98.6 81 18 132/78 Physical Exam General Appearance: Alert, Oriented X3, Cooperative, No Acute Distress Cardiovascular: Regular Rate, No Murmurs Lungs: Clear to Auscultation Abdomen: Normal Bowel Sounds, Soft, No Tenderness Neurological: Normal Speech, Strength at 5/5 X4 Ext, Sensation Intact, Cranial Nerves 3-12 NL Extremities: No Edema Current Medications: Current Medications Sig/Josselyn Start time Last Medication Dose Route Stop Time Status Admin Acetaminophen 650 MG Q6P PRN 03/11 1345 AC PO Amlodipine Besylate 2.5 MG DAILY 03/11 1739 AC 03/15 PO 0956 Aspirin Buffered 81 MG DAILY 03/11 1740 AC 03/15 PO 0956 Baclofen 20 MG AT BEDTIME 03/11 2200 AC 03/15 PO 1957 Citalopram 40 MG DAILY 03/11 1740 AC 03/15 Hydrobromide PO 0955 Diphenhydramine HCl 50 MG .STK-MED ONE 03/15 2241 DC IM 03/15 2242 Diphenhydramine HCl 50 MG .STK-MED ONE 03/15 1706 DC IM 03/15 1707 Diphenhydramine HCl 50 MG .STK-MED ONE 03/15 0955 DC IM 03/15 0956 Diphenhydramine HCl 25 MG Q6P PRN 03/11 1300 AC 03/16 IV 0437 Enoxaparin Sodium 40 MG DAILY 03/11 1342 AC SC Hydromorphone HCl 8 MG BID 03/15 2200 CAN PO Hydromorphone HCl 2 MG Q3P PRN 03/15 2045 AC 03/16 IV 0748 Hydromorphone HCl 2 MG Q4P PRN 03/15 2000 DC 03/15 IV 2000 Hydromorphone HCl 2 MG Q6P PRN 03/15 1730 DC 03/15 IV 1720 Hydromorphone HCl 2 MG Q6P PRN 03/15 1445 DC IV Hydromorphone HCl 2 MG Q3P PRN 03/11 1300 DC 03/15 IV 1411 Omeprazole 20 MG DAILY AC 03/14 0822 AC 03/16 PO 0618 Ondansetron HCl 4 MG Q6P PRN 03/11 1315 AC IV Oxycodone HCl 15 MG Q12 03/11 1300 AC 03/15 PO 1957 Pregabalin 25 MG .STK-MED ONE 03/15 195 DC PO 03/15 195 Pregabalin 75 MG .STK-MED ONE 03/15 1956 DC PO 03/15 195 Pregabalin 75 MG .STK-MED ONE 03/15 1723 DC PO 03/15 1724 Pregabalin 25 MG .STK-MED ONE 03/15 1722 DC PO 03/15 1723 Pregabalin 100 MG TID 03/11 1741 AC 03/15 PO 1957 Sodium Chloride 1,000 ML Q20H 03/11 1315 DC 03/14 IV 2118 Tramadol HCl 50 MG Q6P PRN 03/11 1345 AC PO Assessment/Plan Assessment: 46-year-old man with significant past medical history for the 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 PLAN * Patient is medically stable to be discharged today * Patient has an appointment with pain management (TOMMY edwards at [place] at 4pm today) Problem List: 1. Chronic groin pain Pain Ratin Pain Location: left flank Pain Goal: Pain 4 or less Pain Plan: dilaudid Tomorrow's Labs & Rationales: none DVT/Prophylaxis: pharmacological DAHIANA WELLER 03/16/17 0921: Attending MD Review Statement Attending Statement Attending MD Statement: examined this patient, discuss w/resident/PA/STRAIGHTENER, agreed w/resident/PA/STRAIGHTENER, discussed with family, reviewed EMR data (avail), discussed with nursing, discussed with case mgmt, reviewed images, amended to note Attending Assessment/Plan: Patient is medically stable for discharge.
[2017-03-16 10:49] VITALS: BP 120/82
== END 2017-03-16 14:38 | DRG 699 ==
LOC: ERH 06:38 → ERHI 13:07 → ENRESERV 15:50 → ENTRNSPT 16:30 → 2NA 16:58 → CMPTRNSPT 18:04 → 2NA 03-12 11:37 → ENPENDDIS 03-15 14:50 → EDPENDDISTM 03-16 09:07 → EDPENDDISDT 03-16 09:07 → 2NA 03-16 14:38
PROVIDERS: Internal Medicine; Pediatrics; ADMIT Internal Medicine
DX: N39.8 Other specified disorders of urinary system (principal); F11.20 Opioid dependence, uncomplicated; I10 Essential (primary) hypertension; G89.4 Chronic pain syndrome; R10.32 Left lower quadrant pain; R31.9 Hematuria, unspecified; Z79.82 Long term (current) use of aspirin; K22.70 Barrett's esophagus without dysplasia; M54.5 Low back pain; R73.9 Hyperglycemia, unspecified
CPT/HCPCS: 2NASP; 80307; 81001; 82436; 87086; 93005; 93010; 96374; 96375; 96376; J1170; J1200; J1642; J1650; J2405

== ENCOUNTER 2018-05-18 00:09 | Emergency (ER) | payer OTHER, MEDICARE ==
[~2018-05-18] VITALS: Ht 170.2 cm; Wt 95.3 kg
[~2018-05-18 00:09] MED LIST changes: +AMLODIPINE BES2.5 M1 PO; +AMOX-CLAV 875-1 EACH PO; +BACLOFEN20 M1 PO; +EMEND1 EACH PO; +FENTANYL1 EAC3 TOP; +LISINOPRIL5 M1 PO; +PANTOPRAZOLE SO20 M1 PO
--- NOTE | 2018-05-18 00:16 | ED GENERAL ADULT ---
History of Present Illness General Chief Complaint: General Adult Stated Complaint: " LT KIDNEY PAIN,HX KIDNEY DISEASE" Source: patient Exam Limitations: no limitations Vital Signs & Intake/Output Vital Signs & Intake/Output Vital Signs Date Time Temp Pulse Resp B/P B/P Pulse O2 O2 Flow FiO2 Mean Ox Delivery Rate 05/18 0114 Room Air 05/18 0028 98.9 115 20 177/118 97 Room Air Allergies Coded Allergies: Iodinated Contrast- Oral and IV Dye (IODINATED CONTRAST MEDIA - IV DYE) (Severe, ANAPHYLAXIS 02/12/16) shellfish derived (Severe, LOBSTER - ANAPHYLAXIS 03/12/17) morphine (Intermediate, HIVES 02/12/16) Reconcile Medications Aspirin (Ecotrin*) 81 MG TABLET.DR 1 TAB PO DAILY AFIB (Reported) Baclofen 20 MG TABLET 1 TAB PO QPM SLEEP (Reported) Citalopram Hydrobromide (Citalopram HBr) 40 MG TABLET 1 TAB PO DAILY MENTAL HEALTH (Reported) Hydromorphone HCl (Exalgo) 8 MG TAB.ER.24H 1 TAB PO BID PAIN (Reported) Lisinopril 5 MG TABLET 1 TAB PO DAILY BP (Reported) Pantoprazole Sodium 20 MG TABLET.DR 1 TAB PO BID GI (Reported) Pregabalin (Lyrica) 100 MG CAPSULE 1 CAP PO TID NERVE PAIN (Reported) Triage Nurses Notes Reviewed? yes HPI: 47 yo gentleman h/o complex regional pain syndrome, h/o loin-pain hematuria syndrome, s/p autologous renal transplant ("they stripped the nerves from my kidney and put it back in") presents with left lower quadrant abdominal pain, c/w prior episodes of his loin-pain hematuria syndrome. He notes that he "can't keep anything down," and has been unable to tolerate his regimen of dilaudid and methadone. He presents a note from his doctor describing the regimen that is most effective (dilaudid 2mg iv, up to 3 doses). He states he had a ct scan 2 weeks ago which was benign and prefers not to receive a ct scan. He notes no fever, chills, dysuria, polyuria, diarrhea, chest pain, shortness of breath. He is otherwise well. Past History Travel History Traveled to [place] past 21 day No Medical History Any Pertinent Medical History? see below for history Neurological: NONE EENT: NONE Cardiovascular: AFIB Respiratory: NONE Gastrointestinal: BARROTS ESOPHAGUS Hepatic: NONE Renal: LOIN PAIN HEMATURIA SYNDRome- he presents with letter from his physician stating that he usually requires dilaudid 2mg iv for up to 3 doses. 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 No Review of Systems Review of Systems Constitutional: Reports: no symptoms. EENTM: Reports: no symptoms. Respiratory: Reports: no symptoms. Cardiovascular: Reports: no symptoms. GI: Reports: no symptoms. Genitourinary: Reports: no symptoms. Musculoskeletal: Reports: no symptoms. Skin: Reports: no symptoms. Neurological/Psychological: Reports: no symptoms. Hematologic/Endocrine: Reports: no symptoms. Immunologic/Allergic: Reports: no symptoms. All Other Systems: Reviewed and Negative Physical Exam Physical Exam General Appearance: well developed/nourished, mild distress, moderate distress Head: atraumatic, normal appearance Eyes: Bilateral: normal appearance. Ears, Nose, Throat: normal pharynx, normal ENT inspection Neck: normal inspection, supple, full range of motion Respiratory: normal breath sounds, chest non-tender, no respiratory distress, quiet respiration, lungs clear Cardiovascular: regular rate/rhythm Gastrointestinal: normal bowel sounds, soft, llq tenderness to palpation at site over kidney transplant Back: normal inspection Extremities: normal inspection Neurologic/Psych: no motor/sensory deficits, awake, alert, oriented x 3 Skin: intact, normal color, warm/dry Core Measures ACS in differential dx? No CVA/TIA Diagnosis: No Sepsis Present: No Sepsis Focused Exam Completed? No Progress Differential Diagnoses I considered the following diagnoses in my evaluation of the patient: loin-pain hematuria syndrome vs other. Plan of Care: Orders Procedure Date/time Status URINALYSIS 05/18 39 Complete LIPASE 05/18 39 Complete HEPATIC FUNCTION PANEL 05/18 39 Complete CBC WITHOUT DIFFERENTIAL 05/18 39 Complete BASIC METABOLIC PANEL 08/22 0039 Complete AMYLASE 05/18 39 Complete Current Medications Sig/Josselyn Start time Last Medication Dose Stop Time Status Admin Hydromorphone HCl 2 MG ONCE ONE 05/18 215 UNVr (Dilaudid) 05/18 216 Promethazine HCl 25 MG ONCE ONE 05/18 215 UNVr (Phenergen) 05/18 216 Laboratory Tests 05/18/18 0105: Anion Gap 10, Estimated GFR > 60, BUN/Creatinine Ratio 8.9, Glucose 93, Calcium 9.6, Total Bilirubin 0.6, Direct Bilirubin 0.3, AST 42, ALT 70, Alkaline Phosphatase 85, Total Protein 7.2, Albumin 4.2, Amylase < 30 L, Lipase 25, CBC w Diff NO MAN DIFF REQ, RBC 4.69 L, MCV 78.7 L, MCH 26.0 L, MCHC 33.0, RDW 18.3 H, MPV 11.3 H, Gran % 73.2, Lymphocytes % 19.5 L, Monocytes % 5.1, Eosinophils % 1.3, Basophils % 0.9, Absolute Granulocytes 6.6 H, Absolute Lymphocytes 1.8, Absolute Monocytes 0.5, Absolute Eosinophils 0.1, Absolute Basophils 0.1 05/18/18 0100: Urine Color YEL, Urine Clarity HAZY H, Urine pH 6.5, Ur Specific [place] 1.025, Urine Protein NEG, Urine Ketones 15 H, Urine Nitrite NEG, Urine Bilirubin NEG, Urine Urobilinogen 1.0, Ur Leukocyte Esterase SMALL H, Ur Microscopic SEDIMENT EXAMINED, Urine RBC 25-50 H, Urine WBC 1-3 H, Ur Epithelial Cells FEW, Urine Bacteria FEW H, Urine Mucus MOD H, Urine Hemoglobin LARGE H, Urine Glucose NEG Initial ED EKG: none Departure Departure Disposition: HOME OR SELF CARE Condition: Stable Clinical Impression Primary Impression: Loin pain hematuria syndrome Secondary Impressions: Abdominal pain Referrals: Jose Elias SOTOMAYOR,Dwayne Magaña (PCP/Family) Departure Forms: Customer Survey General Discharge Information Comments 05/18/18, 2:12am... pt more comfortable, still nauseaous... discussed at length with patient. he does not wish ct scan... labs stable... will give one more dose of dilaudid, phenergan... pt received normal saline 1 liter... safe for discharge. Critical Care Note Critical Care Note Critical Care Time: non-applicable
[2018-05-18 01:17] LABS: ABSOLUTE BASOPHIL COUNT 0.1 /CUMM (0.0-0.2); ABSOLUTE EOSINOPHIL COUNT 0.1 /CUMM (0.0-0.7); ABSOLUTE GRANULOCYTE CT 6.6 /CUMM (1.4-6.5); ABSOLUTE LYMPH COUNT 1.8 /CUMM (1.2-3.4); ABSOLUTE MONOCYTE COUNT 0.5 /CUMM (0.10-0.60); BASOPHIL % 0.9 % (0.0-2.0); EOSINOPHIL % 1.3 % (0-5); GRANULOCYTE % 73.2 % (42.2-75.2); HEMATOCRIT 36.9 % (42-52); MEAN CORPUSCULAR VOLUME 78.7 FL (80.0-94.0); MEAN PLATELET VOLUME 11.3 FL (7.4-10.4); PLATELET COUNT 176 /CUMM (130-400); RBC DISTRIBUTION WIDTH 18.3 % (11.5-14.5); RED BLOOD CELL CT 4.69 /CUMM (4.70-6.10)
[2018-05-18 02:20] VITALS: BP 141/80
== END 2018-05-18 02:56 ==
LOC: ERH 00:09
PROVIDERS: Pediatrics
DX: R31.9 Hematuria, unspecified (principal); R10.32 Left lower quadrant pain
CPT/HCPCS: 81001; 96374; 96375; 96376; J1200; J1885; J2405; J2550